=== PATIENT | female | born 1955 | race Two or more races ===

== ENCOUNTER → 2024-08-14 | Outpatient (CLI) | payer OTHER, SELFPAY ==
--- NOTE | 2024-08-14 15:00 | XR_ITS ---
Examination: CT maxillofacial, without intravenous contrast. 2-D sagittal reconstructions. 3-D reconstructions. Date and time of exam:August 14, 2024 1525 hours INDICATIONS: Chronic sinus pressure and pain months CTDI: vol (mGy):7.19 DLP: (mGycm):89.7 Technique: Multiple axial images of maxillofacial region, 3.0 mm slice thickness. 2-D sagittal and coronal reconstructions. 3-D reconstructions. Low dose protocols were performed. One or more of the following dose reduction techniques were used; automated exposure control, adjustment of the mA and/or KV according to patient size, use of iterative reconstruction technique. Findings: Acute and chronic right sphenoid sinusitis Mucosal thickening in the frontal ethmoid air cells and trace mucosal thickening in the maxillary antra Pneumatization left middle turbinate Optic globes exhibit symmetry Symmetrical mastoid aeration Symmetrical internal auditory canals No nasopharyngeal mass No cerebral mass lesion noted IMPRESSION: Chronic sinusitis as above Acute sphenoid sinusitis.
== END | disposition home or self-care (01) ==
PROVIDERS: PCP Otolaryngology; Referring Provider Otolaryngology; Visit Provider Otolaryngology
DX: J32.8 Other chronic sinusitis (principal); J01.30 Acute sphenoidal sinusitis, unspecified
CPT/HCPCS: 70486